=== PATIENT | female | born 1975 | race African-American/Black ===

== ENCOUNTER 2017-03-22 11:06 | Emergency (ER) | payer BC ==
[2017-03-22 12:20] LABS: #Basophils 0.1 thou/uL (0.0-0.2); #Eosinphils 0.1 thou/uL (0.0-0.7); #Lymphocytes 2.5 thou/uL (1.20-3.40); #Monocytes 0.4 thou/uL (0.11-0.59); #Neutrophils 3.4 thou/uL (1.40-6.50); %Basophils 0.9 % (0.0-1.0); %Eosinophils 2.2 % (0.0-10.0); %Lymphocytes 38.8 % (21.0-51.0); Mean Platelet Volume 8.1 fL (7.4-10.4); Red Blood Cell (RBC) Count 4.26 mill/uL (4.20-5.40); White Blood Cell (WBC) Count 6.5 thou/uL (4.8-10.8)
[2017-03-22 12:40] LABS: ALT (SGPT) 12 U/L (8-55); AST (SGOT) 14 U/L (5-34); Alkaline Phosphatase 72 U/L (40-150); Anion Gap 10 mmol/L (10-20); BUN (Urea Nitrogen) 10 mg/dL (7.0-18.7); Bilirubin, Total 0.6 mg/dL (0.2-1.2); Calc. Creatinine Clearance 0 mL/min (70-130); Calcium 9.6 mg/dL (7.8-10.44); Carbon Dioxide 25 mmol/L (22-29); Chloride 106 mmol/L (98-107); Estimated GFR-MDRD Greater than 90; Globulin 3.6 g/dL (2.4-3.5); Protein, Total 7.7 g/dL (6.0-8.3)
[2017-03-22 13:52] LABS: Bilirubin Negative (Negative); Blood, Urine Negative (Negative); Glucose, Urine (Dipstick) Negative (Negative); Ketone, Urine Negative (Negative); Nitrite Negative (Negative); Protein, Urine (Dipstick) Negative (Neg-Trace)
[2017-03-22 13:55] LABS: Bacteria/HPF Rare-Few HPF (None Seen); Hyaline Casts/LPF 0-3 HYALINE CAST LPF (0-3 Hyaline)
[2017-03-22 14:12] LABS: RBC/HPF 0-3 HPF (0-3)
== END 2017-03-22 15:40 | disposition home or self-care (01) ==
LOC: ERS 11:06
DX: N39.0 Urinary tract infection, site not specified (principal)
CPT/HCPCS: 36415; 80053; 81003; 81015; 81025; 85025; 99284

== ENCOUNTER 2017-04-15 07:19 | Emergency (ER) | payer BC ==
[2017-04-15 07:43] LABS: #Basophils 0.1 thou/uL (0.0-0.2); #Eosinphils 0.2 thou/uL (0.0-0.7); #Lymphocytes 2.2 thou/uL (1.20-3.40); #Monocytes 0.4 thou/uL (0.11-0.59); #Neutrophils 2.9 thou/uL (1.40-6.50); %Basophils 1.3 % (0.0-1.0); %Eosinophils 3.1 % (0.0-10.0); %Monocytes 7.5 % (0.0-10.0); Hematocrit 38.7 % (36.0-47.0); Red Blood Cell (RBC) Count 4.19 mill/uL (4.20-5.40); White Blood Cell (WBC) Count 5.8 thou/uL (4.8-10.8)
[2017-04-15 08:16] LABS: ALT (SGPT) 11 U/L (8-55); AST (SGOT) 12 U/L (5-34); Alkaline Phosphatase 66 U/L (40-150); Anion Gap 10 mmol/L (10-20); BUN (Urea Nitrogen) 8 mg/dL (7.0-18.7); Bilirubin, Total 0.5 mg/dL (0.2-1.2); Calc. Creatinine Clearance 0 mL/min (70-130); Calcium 10.2 mg/dL (7.8-10.44); Carbon Dioxide 29 mmol/L (22-29); Chloride 105 mmol/L (98-107); Estimated GFR-MDRD Greater than 90; Globulin 3.2 g/dL (2.4-3.5); Protein, Total 7.3 g/dL (6.0-8.3)
[2017-04-15 09:42] LABS: Bilirubin Negative (Negative); Blood, Urine Trace (Negative); Glucose, Urine (Dipstick) Negative (Negative); Ketone, Urine Negative (Negative); Nitrite Negative (Negative); Protein, Urine (Dipstick) Negative (Neg-Trace); Urobilinogen 0.2 mg/dL (0.2-1.0)
[2017-04-15 09:45] LABS: Bacteria/HPF None Seen HPF (None Seen); Hyaline Casts/LPF 0-3 HYALINE CAST LPF (0-3 Hyaline); Squamous Epithelial 0-3 HPF (0-3); WBC/HPF 0-3 HPF (0-3)
[2017-04-15] MEDS ORDERED: Ketorolac Tromethamine 30 MG/ML VIAL ONE (10:54)
--- NOTE | 2017-04-15 12:35 | CT ---
CT OF THE ABDOMEN AND PELVIS WITH IV CONTRAST: Date: 04-15-17 Provided Clinical History: Right lower quadrant pain. FINDINGS: Comparison is made with the study dated 05-12-14. Visualized lung bases are free of significant opacity. The solid abdominal organs demonstrate an unremarkable CT appearance. The appendix appears normal. There is a heterogeneous appearance to the uterus and adnexa, nonspecifi c and possibly on the basis of physiologic changes. There is a somewhat ill-defined appearance to the fat surrounding some of the adnexa and portions of the uterine margin, and correlation with concerns for pelvic inflammatory disease is recommended. There is no definite evidence for an abscess with li mitations due to lack of enteric contrast material. There is no evidence of bowel obstruction. There is no evidence for pneumoperitoneum. No significant free intraperitoneal fluid is seen. The regional major vascular structures appear unremarkable. The osseous structures demonstrate no concerning osteoblastic or osteolytic lesions. IMPRESSION: Heterogeneous appearance to the uterus and adnexa with an ill-defined appearance to some of the surro unding fat. Findings may be related to physiologic changes related to menstruation. Correlation for c oncerns for pelvic inflammatory disease is recommended. POS: [facility]
[2017-04-15] MEDS ORDERED: metroNIDAZOLE 250 MG TAB ONE (13:10)
[2017-04-15] MEDS ORDERED: Azithromycin 250 MG TAB ONE (13:10)
[2017-04-15] MEDS ORDERED: cefTRIAXone\\ROCEPHIN 250 MG VIAL ONE (13:10)
== END 2017-04-15 14:00 | disposition home or self-care (01) ==
LOC: ERS 07:19
DX: N73.9 Female pelvic inflammatory disease, unspecified (principal); I10 Essential (primary) hypertension
CPT/HCPCS: 36415; 74177; 80053; 81003; 81015; 83690; 85025; 87480; 87491; 87510; 87591; 87660; 96374; 96375; J0696; J1885

== ENCOUNTER 2019-02-01 06:28 | Emergency (ER) | payer BC, SELFPAY ==
[2019-02-01 07:13] LABS: #Eosinphils 0.2 thou/uL (0.0-0.7); #Lymphocytes 2.6 thou/uL (1.20-3.40); #Monocytes 0.5 thou/uL (0.11-0.59); #Neutrophils 3.8 thou/uL (1.40-6.50); %Basophils 0.4 % (0.0-1.0); %Eosinophils 2.2 % (0.0-10.0); %Lymphocytes 36.7 % (21.0-51.0); %Monocytes 7.1 % (0.0-10.0); %Neutrophils 53.6 % (42.0-75.0); Hemoglobin 12.6 g/dL (12.0-16.0); Mean Corpuscular HGB CONC 34.5 g/dL (32.0-36.0); Mean Corpuscular Hemoglobin 31.7 pg (27.0-31.0); Mean Platelet Volume 8.7 fL (7.4-10.4); Platelet Count 226 thou/uL (130-400); RBC Distribution Width 11.6 % (11.5-14.5); Red Blood Cell (RBC) Count 3.96 mill/uL (4.20-5.40)
[2019-02-01] MEDS ORDERED: Morphine 4 MG/ML VIAL ONE (07:22)
[2019-02-01] MEDS ORDERED: Ondansetron PF 4 MG/2 ML Vial ONE (07:22)
[2019-02-01 07:23] LABS: ALT (SGPT) 19 U/L (8-55); AST (SGOT) 16 U/L (5-34); Albumin 4.2 g/dL (3.5-5.0); Alkaline Phosphatase 74 U/L (40-110); Anion Gap 12 mmol/L (10-20); BUN (Urea Nitrogen) 10 mg/dL (7.0-18.7); Bilirubin, Total 0.4 mg/dL (0.2-1.2); Calc. Creatinine Clearance 0 mL/min (70-130); Calcium 9.4 mg/dL (7.8-10.44); Carbon Dioxide 23 mmol/L (22-29); Chloride 107 mmol/L (98-107); Estimated GFR-MDRD Greater than 90; Globulin 3.1 g/dL (2.4-3.5); Glucose 98 mg/dL (70-105); Lipase 10 U/L (8-78); Potassium 4.2 mmol/L (3.5-5.1); Protein, Total 7.3 g/dL (6.0-8.3); Sodium 138 mmol/L (136-145)
[2019-02-01 07:27] LABS: BHCG - Serum Negative (NEGATIVE); Pregs Control Background? CLEAR/WHITE (CLR/WHITE); Pregs Control Bar Appear? YES (CONTROL BAR)
--- NOTE | 2019-02-01 08:10 | CT ---
CT ABDOMEN WITH CONTRAST CT PELVIS WITH CONTRAST: DATE: 02/01/2019 HISTORY: 44-year-old female with lower abdominal pain COMPARISON: 04/15/2017 TECHNIQUE: IV injection of iodinated contrast media: administered. Oral contrast media:Not administered FINDINGS: Liver, pancreas, adrenals, kidneys, spleen, urinary bladder, and abdominal aorta, are normal. No smal l bowel dilation. No pneumoperitoneum. There is fat stranding throughout much of the pelvic cavity, similar to previous CT. The space it difficult to identify the appendix. On coronal images, there is a structure that probably represents normal caliber appendix. Uterus and adnexa appear heterogeneous. No abscess identified. Rectosigmoid junction has shaggy margins. This could be seconda ry to the overall fat stranding within the pelvic cavity. The appearance overall is similar in general, to the previous CT. IMPRESSION: nonspecific findings within the pelvic cavity. Possibility of pelvic inflammatory disease. The appear ance is similar to that of 04/15/2017.
[2019-02-02 00:51] LABS: Chlamydia by PCR Not Detected (NotDetected); GC by PCR Not Detected (NotDetected)
--- NOTE | 2019-02-05 14:39 | EKG ---
Test Reason : Blood Pressure : / mmHG Vent. Rate : 089 BPM Atrial Rate : 089 BPM P-R Int : 114 ms QRS Dur : 076 ms QT Int : 366 ms P-R-T Axes : 073 055 049 degrees QTc Int : 445 ms Normal sinus rhythm Normal ECG Confirmed by SAMEER CHACON DO ([id number]), publication editor TRISH HARRISON ([id number]) on 02/05/2019 2:38:52 PM Referred By: Confirmed By:SAMEER CHACON DO
== END 2019-02-01 09:29 | disposition home or self-care (01) ==
LOC: ERS 06:28
DX: N73.9 Female pelvic inflammatory disease, unspecified (principal); I10 Essential (primary) hypertension; Z79.899 Other long term (current) drug therapy
CPT/HCPCS: 74177; 80053; 83690; 84484; 84703; 85025; 87480; 87491; 87510; 87591; 87660; 93005; 96372; 96374; 96375; J2270; J2405

== ENCOUNTER 2019-04-30 10:44 | Emergency (ER) | payer SELFPAY | END 2019-04-30 11:57 | disposition home or self-care (01) | LOC: ERS 10:44 | DX: J32.9 Chronic sinusitis, unspecified (principal); I10 Essential (primary) hypertension; Z79.899 Other long term (current) drug therapy | CPT/HCPCS: 99282 ==

== ENCOUNTER 2020-05-19 01:05 | Emergency (ER) | payer BC ==
[2020-05-19 03:17] LABS: #Basophils 0.1 thou/uL (0.0-0.2); #Eosinphils 0.2 thou/uL (0.0-0.7); #Lymphocytes 2.8 thou/uL (1.20-3.40); #Monocytes 0.6 thou/uL (0.11-0.59); #Neutrophils 6.3 thou/uL (1.40-6.50); %Basophils 1.1 % (0.0-1.0); %Eosinophils 1.8 % (0.0-10.0); %Lymphocytes 28.2 % (21.0-51.0); %Neutrophils 62.8 % (42.0-75.0); Hemoglobin 12.8 g/dL (12.0-16.0); Mean Corpuscular HGB CONC 33.3 g/dL (32.0-36.0); Mean Corpuscular Hemoglobin 30.7 pg (27.0-31.0); Mean Corpuscular Volume 92.2 fL (78.0-98.0); Mean Platelet Volume 8.4 fL (7.4-10.4); Platelet Count 258 thou/uL (130-400); RBC Distribution Width 11.6 % (11.5-14.5); Red Blood Cell (RBC) Count 4.17 mill/uL (4.20-5.40)
[2020-05-19 03:30] LABS: Bacteria/HPF None Seen HPF (None Seen); Bilirubin Negative (Negative); Blood, Urine Trace (Negative); Clarity Clear (Clear); Glucose, Urine (Dipstick) Normal (Negative); Ketone, Urine Negative (Negative); Leukocyte Negative Leu/uL (Negative); Mucous/LPF 2+ LPF (<2+); Nitrite Negative (Negative); Protein, Urine (Dipstick) 30 mg/dL (Neg-Trace); Specific Gravity, Urine 1.044 (1.002-1.036); WBC/HPF 0-3 HPF (0-3)
[2020-05-19 03:36] LABS: ALT (SGPT) 11 U/L (8-55); AST (SGOT) 15 U/L (5-34); Albumin 4.1 g/dL (3.5-5.0); Alkaline Phosphatase 77 U/L (40-110); Anion Gap 13 mmol/L (10-20); BUN (Urea Nitrogen) 15 mg/dL (7.0-18.7); Bilirubin, Total 0.4 mg/dL (0.2-1.2); Calc. Creatinine Clearance 0 mL/min (70-130); Carbon Dioxide 20 mmol/L (22-29); Chloride 108 mmol/L (98-107); Globulin 3.7 g/dL (2.4-3.5); Glucose 96 mg/dL (70-105); Potassium 4.3 mmol/L (3.5-5.1); Protein, Total 7.8 g/dL (6.0-8.3); Sodium 137 mmol/L (136-145)
[2020-05-19 03:37] LABS: BHCG - Serum Negative (NEGATIVE); Pregs Control Background? CLEAR/WHITE (CLR/WHITE); Pregs Control Bar Appear? YES (CONTROL BAR)
[2020-05-19] MEDS ORDERED: Iopamidol-370 76% 500 ML 1 ML ONE (14:29)
== END 2020-05-19 04:45 | disposition home or self-care (01) ==
LOC: ERS 01:05
DX: R10.31 Right lower quadrant pain (principal); I10 Essential (primary) hypertension; Z79.899 Other long term (current) drug therapy
CPT/HCPCS: 74177; 80053; 81003; 81015; 84703; 85025; J0500

== ENCOUNTER 2020-05-19 12:53 | Day surgery (SDC) | payer BC ==
[~2020-05-19 12:53] MED LIST: Dexamethasone 20 MG/5 ML VIAL ONE; Glycopyrrolate 0.2 MG/ML 5 ML SYRINGE ONE; Ketorolac Tromethamine 30 MG/ML VIAL ONE; Lidocaine 1% PF 5 ML VIAL ONE; Ondansetron PF 4 MG/2 ML Vial ONE; PROPOFOL 200 MG/20 ML VIAL ONE; Rocuronium Bromide 10 MG/ML (10ML VIAL) ONE; ePHEDrine 50 MG/ML VIAL ONE
[2020-05-19 13:52] LABS: #Basophils 0.1 thou/uL (0.0-0.2); #Eosinphils 0.1 thou/uL (0.0-0.7); #Lymphocytes 2.3 thou/uL (1.20-3.40); #Monocytes 0.5 thou/uL (0.11-0.59); %Basophils 0.9 % (0.0-1.0); %Eosinophils 1.5 % (0.0-10.0); %Lymphocytes 28.8 % (21.0-51.0); %Neutrophils 62.8 % (42.0-75.0); Hemoglobin 12.1 g/dL (12.0-16.0); Mean Corpuscular HGB CONC 33.5 g/dL (32.0-36.0); Mean Corpuscular Hemoglobin 30.9 pg (27.0-31.0); Mean Corpuscular Volume 92.2 fL (78.0-98.0); Mean Platelet Volume 8.8 fL (7.4-10.4); Platelet Count 268 thou/uL (130-400); RBC Distribution Width 11.5 % (11.5-14.5)
[2020-05-19] MEDS ORDERED: Morphine 4 MG/ML VIAL ONE (13:55)
[2020-05-19] MEDS ORDERED: Ondansetron PF 4 MG/2 ML Vial ONE (13:55)
[2020-05-19 14:03] LABS: BHCG - Serum Negative (NEGATIVE); Pregs Control Background? CLEAR/WHITE (CLR/WHITE); Pregs Control Bar Appear? YES (CONTROL BAR)
[2020-05-19 14:09] LABS: ALT (SGPT) 12 U/L (8-55); AST (SGOT) 15 U/L (5-34); Alkaline Phosphatase 76 U/L (40-110); Anion Gap 13 mmol/L (10-20); BUN (Urea Nitrogen) 9 mg/dL (7.0-18.7); Bilirubin, Total 0.5 mg/dL (0.2-1.2); Calc. Creatinine Clearance 0 mL/min (70-130); Calcium 8.9 mg/dL (7.8-10.44); Carbon Dioxide 24 mmol/L (22-29); Chloride 106 mmol/L (98-107); Globulin 3.6 g/dL (2.4-3.5); Glucose 117 mg/dL (70-105); Lipase 11 U/L (8-78); Potassium 3.5 mmol/L (3.5-5.1); Protein, Total 7.6 g/dL (6.0-8.3); Sodium 139 mmol/L (136-145)
[2020-05-19] MEDS ORDERED: metroNIDAZOLE 500 MG/100 ML BAG ONE (14:15)
[2020-05-19] MEDS ORDERED: Ciprofloxacin HCL/Dexameth Otic Drops 7.5 ml Bottle ONE (14:15)
[2020-05-19] MEDS ORDERED: Levofloxacin 500 mg/D5W 100 ml Premix Bag ONE (14:49)
[2020-05-19 14:57] LABS: Bacteria/HPF None Seen HPF (None Seen); Bilirubin Negative (Negative); Blood, Urine 1+ (Negative); Clarity Clear (Clear); Glucose, Urine (Dipstick) Normal (Negative); Ketone, Urine Negative (Negative); Leukocyte Negative Leu/uL (Negative); Nitrite Negative (Negative); Protein, Urine (Dipstick) 50 mg/dL (Neg-Trace); Squamous Epithelial 0-3 HPF (0-3); WBC/HPF 0-3 HPF (0-3); pH, Urine 5.5 (5.0-9.0)
[2020-05-19] MEDS ORDERED: Bupivacaine 0.25% HCL 30 ML VIAL ONE (15:00)
[2020-05-19] MEDS ORDERED: XYLOCAINE 2%-EPI 1:100,000 20 ML VIAL ONE (15:00)
[2020-05-19] MEDS ORDERED: Dexmedetomidine 200 MCG/2 ML VIAL ONE (15:04)
[2020-05-19] MEDS ORDERED: Fentanyl 100 MCG/2 ML VIAL ONE (15:04)
[2020-05-19 15:05] LABS: Specific Gravity, Urine 1.051 (1.002-1.036)
[2020-05-19 15:23] LABS: SARS-CoV-2 NAA Rapid Test Not Detected (NotDetected)
[2020-05-19] MEDS ORDERED: Promethazine HCl 25 MG/ML VIAL ONE (17:41)
--- NOTE | 2020-05-19 17:51 | OP ---
DATE OF PROCEDURE: 05/19/2020 PREOPERATIVE DIAGNOSIS: Acute appendicitis. POSTOPERATIVE DIAGNOSES: Acute appendicitis and pelvic inflammatory disease, chronic. PROCEDURES PERFORMED: Laparoscopic appendectomy, laparoscopic pelvic washout. ANESTHESIA: General. ESTIMATED BLOOD LOSS: Minimal. COMPLICATIONS: None. FINDINGS: The appendix is borderline dilated. No significant purulence. No significant inflammatory change. It is removed. There is blood in the pelvis from this area of chronic pelvic inflammatory disease with pretty significant chronic scarring around the bilateral ovaries. Dr. Jayson Otero was brought in the room, who recommends followup in the [facility] as an outpatient. No indication for anything operative emergent. DESCRIPTION OF PROCEDURE: The patient was taken to the operating room and laid supine on the operating room table. After general anesthetic was obtained, a Maria was placed. The abdomen was prepped and draped in a sterile fashion. A curved incision was made below the umbilicus. Cautery was used to dissect down to and score the fascia. Abdominal cavity was entered using bluntly a Vy clamp. Holding stitch of PDS was placed on each side of the fascia. Milton trocar was placed. High-flow pneumoperitoneum was obtained. Suprapubic 5 mm port and lower abdominal 5 mm ports were placed under direct visualization. There was blood in the pelvis. This was irrigated out. There was evidence of chronic pelvic inflammatory disease and likely cyst rupture. The right and left ovaries were seen. Dr. Jayson Otero was brought into the room for observation. He recommends nothing acutely to be done. He recommends outpatient followup. The appendix was borderline in diameter. Window was made at the base of the appendix and mesoappendix. Laparoscopic stapler was fired across the base of appendix. A reload was fired across the mesoappendix. Appendix was placed in an EndoCatch bag and brought out through the Cuello. All port sites were infiltrated using local anesthetic. There was no bleeding in the abdomen. No injury to any intraabdominal structures. All port sites were infiltrated. All ports were removed under direct visualization without bleeding. Pneumoperitoneum was let down. PDS was used to close the fascial defect below the umbilicus. All incisions were irrigated and closed using 4-0 Monocryl and Dermabond. The patient was sent to Recovery in stable condition. All instrument counts, needle counts, and lap counts were correct. Job ID: [id number]
--- NOTE | 2020-05-19 20:46 | HP ---
CHIEF COMPLAINT: Lower abdominal pain. HISTORY OF PRESENT ILLNESS: This is a 45-year-old female who presents with a history of abdominal pain in her low abdomen, right worse than left, described as sharp and constant. Seen in the emergency department overnight. CT scan was equivocal for appendicitis. Her pain improved. She was discharged home. However, CT over reads revealed more concern for appendicitis and so she was asked to return. Seen by Dr. Cooper in the ER and found to have pretty persistent lower abdominal pain on exam with CT showing possible appendicitis. She was taken to the operating room for appendectomy. PAST MEDICAL HISTORY: Hypertension. PAST SURGICAL HISTORY: . MEDICATIONS: Taken daily, metoprolol. ALLERGIES: PENICILLIN. SOCIAL HISTORY: No smoking, alcohol, or other drugs. REVIEW OF SYSTEMS: Ten-system review of systems is otherwise negative except as described above. PHYSICAL EXAMINATION: HEENT: Sclerae are anicteric. Oropharynx is clear. NECK: No lymphadenopathy. CHEST: Clear. HEART: Regular rate. ABDOMEN: Soft. Tender in the lower abdomen, right worse than left. No abdominal or inguinal hernias. EXTREMITIES: No ischemia or edema to extremities. LABORATORY DATA: White blood cell count is 8, hemoglobin 12.2, platelet count is 268. Creatinine is 0.78. CT scan as above. ASSESSMENT AND PLAN: Abdominal pain with CT showing likely appendicitis, taken to the operating room for laparoscopic appendectomy. Risks, benefits, and alternatives discussed. Thirty minutes spent in discussion and review of x-rays and labs, and discussion with the patient. We will do this today. Job ID: [id number]
== END 2020-05-19 18:50 | disposition home or self-care (01) ==
LOC: ERS 12:53 → SDC 14:00
PROVIDERS: ATTEND Surgery
PROC: 0DTJ4ZZ Resection of Appendix, Percutaneous Endoscopic Approach (ICD-10-PCS; principal; 2020-05-19)
DX: K35.80 Unspecified acute appendicitis (principal); N73.9 Female pelvic inflammatory disease, unspecified; I10 Essential (primary) hypertension; Z79.899 Other long term (current) drug therapy; Z88.0 Allergy status to penicillin; Z20.822 Contact with and (suspected) exposure to COVID-19; R10.31 Right lower quadrant pain
CPT/HCPCS: 74177; 80053; 81003; 81015; 83690; 84703; 85025; 88304; 96372; 96374; 96375; J0500; J1100; J1885; J1956; J2270; J2405; J2550; J2704; J3010; J3490; Q9967; S0020; U0002

== ENCOUNTER 2022-04-29 06:03 | Emergency (ER) | payer BC, SELFPAY ==
[2022-04-29] MEDS ORDERED: Aspirin Chewable 81 MG TAB ONE (06:37)
[2022-04-29 06:53] LABS: Hemoglobin 12.8 g/dL (12.0-16.0); Mean Corpuscular HGB CONC 34.9 g/dL (32.0-36.0); Mean Corpuscular Hemoglobin 31.7 pg (27.0-31.0); Mean Platelet Volume 8.8 fL (7.4-10.4); Platelet Count 240 10x3/uL (130-400); RBC Distribution Width 11.6 % (11.5-14.5); Red Blood Cell (RBC) Count 4.03 mill/uL (4.20-5.40); White Blood Cell (WBC) Count 6.7 10x3/uL (4.8-10.8)
[2022-04-29 07:19] LABS: ALT (SGPT) 16 U/L (8-55); AST (SGOT) 15 U/L (5-34); Albumin 4.1 g/dL (3.5-5.0); Alkaline Phosphatase 86 U/L (40-110); Anion Gap 12 mmol/L (10-20); BUN (Urea Nitrogen) 12 mg/dL (7.0-18.7); Bilirubin, Total 0.2 mg/dL (0.2-1.2); Calc. Creatinine Clearance 0 mL/min (70-130); Calcium 9.4 mg/dL (7.8-10.44); Carbon Dioxide 23 mmol/L (22-29); Chloride 107 mmol/L (98-107); Estimated GFR 108; Globulin 3.4 g/dL (2.4-3.5); Glucose 105 mg/dL (70-105); Potassium 4.2 mmol/L (3.5-5.1); Protein, Total 7.5 g/dL (6.0-8.3); Sodium 138 mmol/L (136-145)
[2022-04-29 07:56] LABS: Eosinophils 3 % (0-10); Lymphocytes 49 % (21-51); MDiff Complete? YES; Monocytes 9 % (0-10); Neutrophil 39 % (42-75); Platelet Morphology Comment Appears Adequate; RBC Morphology Normal
== END 2022-04-29 08:30 | disposition home or self-care (01) ==
LOC: ERS 06:03
DX: R07.9 Chest pain, unspecified (principal); R06.02 Shortness of breath; I10 Essential (primary) hypertension
CPT/HCPCS: 71045; 80053; 83880; 84484; 85025; 93005

== ENCOUNTER 2024-05-13 19:56 | Observation (INO) | payer BC, OTHER, SELFPAY ==
[2024-05-13 22:15] LABS: #Basophils 0.03 10x3/uL (0.0-0.2); %Basophils 0.5 % (0.0-1.0); %Eosinophils 1.7 % (0.0-10.0); %Lymphocytes 55.1 % (21.0-51.0); %Monocytes 5.7 % (0.0-10.0); %Neutrophils 36.8 % (42.0-75.0); Hematocrit 34.1 % (36.0-47.0); Hemoglobin 11.4 g/dL (12.0-16.0); Mean Corpuscular HGB CONC 33.4 g/dL (32.0-36.0); Mean Corpuscular Hemoglobin 29.7 pg (27.0-31.0); Mean Corpuscular Volume 88.8 fL (78.0-98.0); Mean Platelet Volume 10.8 fL (7.4-10.4); Platelet Count 244 10x3/uL (130-400); RBC Distribution Width 12.4 % (11.5-14.5); Red Blood Cell (RBC) Count 3.84 mill/uL (4.20-5.40)
[2024-05-13 22:30] LABS: ALT (SGPT) 16 U/L (Less than 34); AST (SGOT) 20 U/L (11-34); Albumin 3.9 g/dL (3.1-4.5); Alkaline Phosphatase 82 U/L (40-110); Anion Gap 15 mmol/L (10-20); BUN (Urea Nitrogen) 12 mg/dL (7.0-18.7); Bilirubin, Total 0.4 mg/dL (0.3-1.2); Calc. Creatinine Clearance 0 mL/min (70-130); Calcium 9.4 mg/dL (7.8-10.44); Carbon Dioxide 22 mmol/L (22-29); Chloride 109 mmol/L (98-107); Estimated GFR 108; Globulin 3.6 g/dL (2.4-3.5); Glucose 93 mg/dL (70-105); Lipase 17 U/L (8-78); Potassium 3.6 mmol/L (3.5-5.1); Protein, Total 7.5 g/dL (6.0-8.3); Sodium 142 mmol/L (136-145)
[2024-05-13 22:34] LABS: Troponin I 0.056 ng/mL (< 0.028)
[2024-05-13] MEDS ORDERED: Aspirin Chewable 81 MG TAB ONE (23:37)
[2024-05-13] MEDS ORDERED: Nitroglycerin 0.4 MG TAB 1 EACH ONE (23:37)
[2024-05-13] MEDS ORDERED: Ondansetron ODT 4 MG TAB SL PRN (23:45)
[2024-05-13] MEDS ORDERED: Acetaminophen 325 MG TAB PO PRN (23:45)
[2024-05-13] MEDS ORDERED: Ondansetron PF 4 MG/2 ML Vial IVP PRN (23:45)
[2024-05-14] MEDS ORDERED: Ondansetron PF 4 MG/2 ML Vial IVP PRN (00:37)
[2024-05-14] MEDS ORDERED: Acetaminophen 325 MG TAB PO PRN (00:37)
[2024-05-14] MEDS ORDERED: Nitroglycerin 0.4 MG TAB (25 Tab Bottle) SL PRN (00:37)
[2024-05-14] MEDS ORDERED: Ondansetron ODT 4 MG TAB PO PRN (00:37)
[2024-05-14 01:45] VITALS: BMI 30.4
[2024-05-14 04:07] LABS: #Basophils 0.03 10x3/uL (0.0-0.2); %Basophils 0.5 % (0.0-1.0); %Eosinophils 2.3 % (0.0-10.0); %Lymphocytes 49.9 % (21.0-51.0); %Monocytes 6.9 % (0.0-10.0); %Neutrophils 40.2 % (42.0-75.0); Hematocrit 33.1 % (36.0-47.0); Hemoglobin 11.1 g/dL (12.0-16.0); Mean Corpuscular HGB CONC 33.5 g/dL (32.0-36.0); Mean Corpuscular Hemoglobin 29.7 pg (27.0-31.0); Mean Corpuscular Volume 88.5 fL (78.0-98.0); Mean Platelet Volume 11.2 fL (7.4-10.4); Platelet Count 227 10x3/uL (130-400); RBC Distribution Width 12.4 % (11.5-14.5); Red Blood Cell (RBC) Count 3.74 mill/uL (4.20-5.40)
[2024-05-14 04:30] LABS: Anion Gap 12 mmol/L (10-20); BUN (Urea Nitrogen) 13 mg/dL (7.0-18.7); Calc. Creatinine Clearance 136 mL/min (70-130); Calcium 9.3 mg/dL (7.8-10.44); Carbon Dioxide 24 mmol/L (22-29); Cardiac Risk 3.9 (Less than 4.5); Chloride 108 mmol/L (98-107); Cholesterol 219 mg/dl (< 200 Desired); Estimated GFR 107; Glucose 169 mg/dL (70-105); HDL Cholesterol 56 mg/dL (>60 Neg Risk); LDL Cholesterol, Calculated 141 mg/dL; Sodium 141 mmol/L (136-145); Triglycerides 109 mg/dL (Less than 150)
[2024-05-14 04:33] LABS: Troponin I 0.054 ng/mL (< 0.028)
[2024-05-14 08:13] LABS: Troponin I 0.061 ng/mL (< 0.028)
[2024-05-14] MEDS ORDERED: Electrolyte Replacement Protocol 1 EACH FS PRN (08:19)
[2024-05-14] MEDS ORDERED: Electrolyte Replacement Protocol FS PRN (08:30)
[2024-05-14] MEDS ORDERED: Regadenoson 0.4 MG/5 ML SYRINGE ONE (09:44)
[2024-05-14] MEDS: Amlodipine 5 MG TAB PO SCH (11:29)
[2024-05-14] MEDS: Aspirin Chewable 81 MG TAB PO SCH (11:30)
[2024-05-14] MEDS: Potassium Chloride 20 MEQ in Premix 1 BAG IVPB SCH (11:31)
[2024-05-14 13:39] VITALS: BP 153/92; TEMP 98.2
[2024-05-14] MEDS ORDERED: Pregabalin 75 MG CAP PO SCH (21:00)
== END 2024-05-14 15:43 | disposition home or self-care (01) ==
LOC: ERS 19:56 → 2SE 23:32
PROVIDERS: ADMIT Student in an Organized Health Care Education/Training Program; ATTEND Internal Medicine
DX: R07.89 Other chest pain (principal); I10 Essential (primary) hypertension; R79.89 Other specified abnormal findings of blood chemistry; Z88.0 Allergy status to penicillin; Z90.49 Acquired absence of other specified parts of digestive tract
CPT/HCPCS: 36415; 71045; 78452; 80048; 80053; 80061; 83690; 84484; 85025; 85379; 93005; 93017; 96374; A9502; G0378; J2785; J3480